=== PATIENT | male | born 2000 | race Caucasian/White ===

== ENCOUNTER 2024-01-01 14:58 | Emergency (ER) | payer OTHER ==
[2024-01-01 15:03] VITALS: BP 121/59; PULSE 66; RESP 20; TEMP 97.6; BMI 22.6
[2024-01-01 15:58] LABS: THROAT:GRP A STREP NOT DETECTED (NOTDETECTED)
[2024-01-01] MEDS ORDERED: ACETAMINOPHEN 500 MG TABLET (FP) ONE (16:16)
[2024-01-01] MEDS ORDERED: ONDANSETRON *ODT* 4 MG TABLET ONE (16:16)
[2024-01-01] MEDS: ACETAMINOPHEN 500 MG TABLET (FP) PO ONE (16:20)
[2024-01-01] MEDS: ONDANSETRON 4 MG TABLET PO ONE (16:20)
== END 2024-01-01 16:41 | disposition home or self-care (01) ==
LOC: JERFT 14:58
DX: J02.9 Acute pharyngitis, unspecified (principal); R05.9 Cough, unspecified; R09.81 Nasal congestion; R11.10 Vomiting, unspecified; A08.4 Viral intestinal infection, unspecified; Z20.822 Contact with and (suspected) exposure to COVID-19
CPT/HCPCS: 0241U-QW; 87651; 99283-25

== ENCOUNTER 2024-05-08 09:54 | Emergency (ER) | payer OTHER ==
[2024-05-08 10:03] VITALS: BP 110/64; PULSE 74; RESP 20; TEMP 98.4; BMI 21.6
[2024-05-08] MEDS ORDERED: ACETAMINOPHEN 500 MG TABLET (FP) ONE (10:54)
[2024-05-08] MEDS ORDERED: IBUPROFEN 600 MG TABLET (FP) PO ONE (10:54)
[2024-05-08] MEDS ORDERED: ONDANSETRON *ODT* 4 MG TABLET ONE (10:55)
[2024-05-08] MEDS: IBUPROFEN 600 MG TABLET (FP) PO ONE (11:00)
[2024-05-08] MEDS: ONDANSETRON *ODT* 4 MG TABLET SL ONE (11:01)
[2024-05-08] MEDS: ACETAMINOPHEN 500 MG TABLET (FP) PO ONE (11:01)
[2024-05-08 11:37] LABS: THROAT:GRP A STREP NOT DETECTED (NOTDETECTED)
== END 2024-05-08 12:05 | disposition home or self-care (01) ==
LOC: JERFT 09:54
DX: R50.9 Fever, unspecified (principal); J02.9 Acute pharyngitis, unspecified; B34.9 Viral infection, unspecified; R11.10 Vomiting, unspecified; R51.9 Headache, unspecified; M79.10 Myalgia, unspecified site; Z20.822 Contact with and (suspected) exposure to COVID-19
CPT/HCPCS: 0241U-QW; 87651; 99283-25; Q0162